=== PATIENT | male | born 1970 | race Caucasian/White ===

== ENCOUNTER 2018-07-01 05:30 | Outpatient (CLI) | payer BC ==
[~2018-07-01] VITALS: Ht 177.8 cm; Wt 97.1 kg
== END 2018-07-01 10:20 | disposition home or self-care (01) ==
LOC: PREOP 05:30
PROVIDERS: ATTEND Surgery
DX: Z01.818 Encounter for other preprocedural examination (principal)

== ENCOUNTER 2018-07-08 06:07 | Day surgery (SDC) | payer BC, OTHER ==
[~2018-07-08] VITALS: Ht 177.8 cm; Wt 93.2 kg
--- OUTSIDE RECORDS SUMMARY | 2018-07-08 06:10 | XMS REPORT | Continuity of Care Document ---
Author Author [facility] Organization [facility] Address Unknown Phone Unavailable Allergies Active Description Code Type Severity Reaction Onset Reported/Identified Relationship to Patient Clinical Status Yes Penicillins [id number] Drug Allergy Unknown FROM CHILDHOOD 07/01/2018 Medications There is no data. Problems Date Dx Coded Attending Type Code Diagnosis Diagnosed By 04/28/2010 Ot 724.4 10/03/2014 Ot 721.3 10/06/2014 SUSAN MILLER APRN Ot 327.23 OBSTRUCTIVE SLEEP APNEA (ADULT) (PEDIATR 07/01/2018 STEPHANIE YOO, NATHAN Lopez Ot Z01.818 ENCOUNTER FOR OTHER PREPROCEDURAL EXAMIN Procedures There is no data. Results There is no data. Encounters ACCT No. Visit Date/Time Discharge Status Pt. Type Provider Facility Loc./Unit Complaint [id number] 07/01/2018 05:30:00 07/01/2018 10:20:00 DIS Outpatient NATHAN BROWN MD [facility] PREOP ROBOTIC VENTRAL HERNIA REPAIR WITH MESH [id number] 10/05/2014 19:57:00 10/06/2014 06:30:00 DIS Outpatient SUSAN MILLER APRN [facility] SLEEP SIVA [id number] 07/08/2018 06:07:00 ACT Outpatient NATHAN BROWN MD [facility] SDC VENTRAL HERNIA [id number] 04/28/2010 07:58:00 Document Registration [id number] 12/27/2009 11:58:00 Document Registration
[2018-07-08 06:35] VITALS: BP 126/88
[2018-07-08] MEDS ORDERED: VANCOMYCIN INJECTION 1,000 MG in NS (IVPB) 250 ML IV ONE (06:45)
[2018-07-08] MEDS ORDERED: ONDANSETRON 4 MG/2 ML (SDV) Z0FRAN ONE (06:47)
[2018-07-08] MEDS ORDERED: proPOfol 200 MG/20 ML (DIPRIVAN) VIAL IV ONE (06:47)
[2018-07-08] MEDS ORDERED: ROCURONIUM 10 MG/ML 5 ML SYRINGE IV ONE ×2 (06:47→09:15)
[2018-07-08] MEDS ORDERED: LIDOCAINE PF 2% 5 ML (XYLOCAINE) VIAL ONE (06:47)
[2018-07-08] MEDS ORDERED: fentaNYL INJECTION 100 MCG/2 ML AMP ONE ×2 (06:47→09:45)
[2018-07-08] MEDS ORDERED: MIDAZOLAM 2 MG/2 ML (VERSED) VIAL ONE (06:47)
[2018-07-08] MEDS ORDERED: DEXAMETHASONE 10 MG/ML (DECADRON) 1 ML VIAL ONE (06:47)
[2018-07-08] MEDS ORDERED: SEVOFLURANE (ULTANE) 15 ML INHAL SOLN ONE ×4 (06:47→09:38)
[2018-07-08] MEDS: LACTATED RINGERS 1,000 ML IV PRN ×2 (06:52→09:20)
[2018-07-08 06:58] LABS: BASOPHILS % (AUTO) 1 % (0-10); EOSINOPHILS # (AUTO) 0.3 10^3/uL (0.0-0.3); EOSINOPHILS % (AUTO) 3 % (0-10); HEMATOCRIT 45 % (40-54); HEMOGLOBIN 15.4 G/DL (13.3-17.7); LYMPHOCYTES # (AUTO) 2.7 X 10^3 (1.0-4.0); LYMPHOCYTES % (AUTO) 32 % (12-44); MEAN CORPUSCULAR HEMOGLOBIN 29 PG (25-34); MEAN CORPUSCULAR HGB CONC 35 G/DL (32-36); MEAN CORPUSCULAR VOLUME 83 FL (80-99); MEAN PLATELET VOLUME 10.5 FL (7.4-10.4); MONOCYTES % (AUTO) 11 % (0-12); NEUTROPHILS # (AUTO) 4.6 X 10^3 (1.8-7.8); NEUTROPHILS % (AUTO) 53 % (42-75); PLATELET COUNT 242 10^3/uL (130-400); RED BLOOD COUNT 5.34 10^6/uL (4.35-5.85); RED CELL DISTRIBUTION WIDTH 13.2 % (10.0-14.5); WHITE BLOOD COUNT 8.6 10^3/uL (4.3-11.0)
[2018-07-08] MEDS ORDERED: BUP/EPI 0.5% 1:200,000 (SENSORCAINE) 30 ML VIAL ONE (07:20)
--- NOTE | 2018-07-08 08:21 | Progress Note-Pre Operative ---
Pre-Operative Progress Note H&P Reviewed The H&P was reviewed, patient examined and no changes noted. Date Seen by Provider: Jun 21, 2018 Time Seen by Provider: 11:00 Date H&P Reviewed: Jul 08, 2018 Time H&P Reviewed: 08:20 Pre-Operative Diagnosis: Ventral hernia NATHAN BROWN MD Jul 08, 2018 08:21
[2018-07-08] MEDS ORDERED: NEOSTIGMINE 1 MG/ML 5 ML SYRINGE ONE (09:16)
[2018-07-08] MEDS ORDERED: GLYCOPYRROLATE 0.2 MG/ML (ROBINUL) 2 ML VIAL ONE (09:16)
[2018-07-08] MEDS ORDERED: BUPIVACAINE 0.5% 30 ML (SENSORCAINE) VIAL ONE (09:35)
[2018-07-08] MEDS ORDERED: OXYC1TAB87 PO ×2 (09:43→10:02)
--- NOTE | 2018-07-08 09:43 | Operative Report ---
Operative Report Date of Procedure/Surgery Jul 08, 2018 Surgeon (s) NATHAN BROWN MD [employer] Person (s): N/A Post-Operative Diagnosis Same Procedure Performed Robotic assisted repair with mesh Description of Procedure Anesthesia Type: General Estimated blood loss (mL): Minimal Specimen(s) collected/removed Hernia contents Description of the Procedure Indication for the procedure: This gentleman distended with symptomatically ventral hernia in relation to his umbilicus with difficulty reducing it. Therefore, it was felt reasonable to proceed with repair using minimally invasive technique with the robotic assistance and mesh reinforcement. Informed consent was obtained after reviewing the procedure and complications of hematoma, infection of the mesh and then low incidence of recurrence. Description of procedure: He was placed supine on the operative table and general anesthesia induced. A gram of vancomycin was administered intravenously as prophylaxis against wound infection. Sequential compression devices were placed around his legs, to minimize the risk of venous thrombosis. Abdomen was prepared and draped in the usual sterile manner. The right side of his body was tilted up on soft rolls, to facilitate triangulation of the robotic system. Pneumoperitoneum was established using a Veress needle introduced over the right subcostal margin, along the midaxillary line. Intra-abdominal pressure was initially maintained at 15 mmHg, using carbon dioxide insufflation. A 12 mm trocar was placed and anatomy visualized using a high definition, 3- dimensional laparoscope associated with [employer] system. A 2 cm defect extraperitoneal contents was discovered. Under direct view, I placed another 12 mm trocar over the right side of the abdomen, along the midaxillary line, followed by an 8 mm trocar over the right lower quadrant. The robotic system was then docked in place. Extraperitoneal fat contained within the hernia, with the associated sac was excised and removed via the 12 mm trocar. The defect was then closed using 0V LOC, nonabsorbable sutures without tension, using robotic assistance. Intra-abdominal pressure was reduced to 11 mmHg, to reduce tension on the repair. A polypropylene mesh measuring 11.4 cm in diameter, connected to a self retaining balloon device was used for repair. It was held up using the balloon and the edges were secured using 20V LOC sutures with the robotic assisted. Hemostasis was satisfactory and the operation concluded. Incisions were closed using 4-0 Vicryl, in a subcuticular fashion. 0.5 percent Marcaine with epinephrine was infiltrated along the incisions, both preemptively and at the conclusion of the operation. He tolerated procedure well, was extubated in the operative room and taken to the recovery room in a stable condition. Findings of the Procedure See op report Allergies and Home Medications Allergies Coded Allergies: Penicillins (Verified Allergy, Unknown, FROM CHILDHOOD, 07/01/18) Patient Home Medication List Home Medication List Reviewed: Yes NATHAN BROWN MD Jul 08, 2018 09:43
--- NOTE | 2018-07-08 09:44 | Discharge Inst-Simple/Standard ---
Discharge Inst-Standard Discharge Medications New, Converted or Re-Newed RX: RX on Chart Patient Instructions/Follow Up Plan of Care/Instructions/FU: Abdominal binder 2 weeks, while moving around. Band-Aids off in 48 hours. Follow-up in 4 weeks Activity as Tolerated: No Goal: No lifting or pushing over 10 pounds Discharge Diet: No Restrictions NATHAN BROWN MD Jul 08, 2018 09:44
[2018-07-08] MEDS ORDERED: morphine INJ 10 MG/ML 1ML (SYR OR VIAL) IVP ONE (10:15)
[2018-07-08] MEDS ORDERED: HYDROmorphone 2 MG/ML VIAL (DILAUDID) IV ONE (10:15)
[2018-07-08] MEDS ORDERED: ONDANSETRON 4 MG/2 ML (SDV) Z0FRAN IVP PRN (10:15)
[2018-07-08 11:05] VITALS: BP 125/85
[2018-07-08 11:35] VITALS: BP 119/78
[2018-07-08] MEDS ORDERED: KETOROLAC 30 MG/ML VIAL ONE (11:58)
[2018-07-08 12:05] VITALS: BP 125/84
[2018-07-08] MEDS ORDERED: KETOROLAC 30 MG/ML VIAL IVP ONE (13:00)
[2018-07-08 13:30] VITALS: BP 114/82
== END 2018-07-08 13:30 | disposition home or self-care (01) ==
LOC: SDC 06:07
PROVIDERS: ATTEND Surgery
DX: K43.9 Ventral hernia without obstruction or gangrene (principal); G47.33 Obstructive sleep apnea (adult) (pediatric)
CPT/HCPCS: 36415; 85025; 87081; 88302; 94664